=== PATIENT | male | born 1940 | race Caucasian/White ===

== ENCOUNTER 2022-10-18 06:41 | Observation (INO) ==
--- NOTE | 2022-09-16 11:33 | PAT Medication Instructions ---
Medication Instructions Date of Service September 16, 2022 Home Medications Medication Instructions Recorded Parveen Zepeda #1 ea 09/16/22 cholecalciferol (vitamin D3) 25 mcg (1,000 unit) capsule 25 mcg PO QAM Parveen Zepeda amlodipine 2.5 mg tablet 2.5 mg PO QPM levothyroxine 100 mcg tablet 100 mcg PO QAM DO NOT take the morning of surgery cholecalciferol (vitamin D3) 25 mcg (1,000 unit) capsule 25 mcg PO QAM Take morning of surgery With a small sip of water, OTHERWISE NOTHING TO EAT OR DRINK AFTER MIDNIGHT: levothyroxine 100 mcg tablet 100 mcg PO QAM Take evening before surgery amlodipine 2.5 mg tablet 2.5 mg PO QPM Other Notes If you have any questions please call us at [phone] or [phone] or [phone] or [phone]
--- NOTE | 2022-09-19 09:12 | Anesthesiology Consultation ---
Date of Service September 19, 2022 Assessment & Plan (1) Encounter for pre-operative examination: Plan - awaiting echocardiogram, cardiology and PCP clearances. Surgeon's office made aware. Pt made aware. - abnormal cxr: Pt to have PCP clearance per discussion with Dr. Kruger. - Case discussed in detail with Dr. Kruger who advised pt will need echocardiogram and cardiology clearance prior to surgery, nothing further needed from his standpoint regarding brain imaging/records. - Outpatient joint assessment: Patient is currently scheduled for inpatient pathway. If re-evaluated pending system levels during current pandemic/surgeon requests outpatient pathway, patient is NOT acceptable candidate for outpatient joint program from anesthesia standpoint. Chart Review Chart Review: Pending: Refer to Additional Notes / Consult section and Patient seen in Pre Admission Testing Teaching & Discussion Pre-Anesthesia Teaching/Discussion Notes: Instructed NPO after midnight before surgery, except medications with 15 cc of water. Medication instructions provided according to the PAT guidelines. History Surgery Operation Date: 09/23/22 12:30 Proposed Procedures p Left Total Hip Arthroplasty - Paulino Woods MD Height/Weight Height: 5 ft 9 in Weight: 76.6 kg Allergies Allergy/AdvReac Type Severity Reaction Status Date / Time codeine AdvReac Unknown Unverified 09/16/22 10:43 Medications Home Medications Medication Instructions Recorded Confirmed Last Taken cholecalciferol (vitamin D3) 25 25 mcg PO QAM 08/03/22 09/16/22 Unknown mcg (1,000 unit) capsule Wheeled Walker #1 ea 09/16/22 09/16/22 Unknown amlodipine 2.5 mg tablet 2.5 mg PO QPM 09/16/22 09/16/22 Unknown levothyroxine 100 mcg tablet 100 mcg PO QAM 09/16/22 09/16/22 Unknown Past Medical History Medical History (Updated 09/19/22 @ 09:51 by Shahla Mcadams PA-C) Cerebral arterial aneurysm per pt, dx'd > 20 years ago. Followed with [facility]. Annual MRIs x 5 years and no changes. No longer being monitored. 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 Exercise / Class Metabolic Activity II 4-5 Yardwork/Stairs/Walk up hill (denies chest discomfort or shortness of breath with 1 FOS) Past Family History Family History Mother Stroke Brother Prostate cancer Father Heart abnormality Sister Alzheimer disease Other No family history of adverse response to anesthesia Denies family history of Ovarian cancer Myocardial infarction Breast cancer Colorectal cancer Past Surgical History Surgical History History of colonoscopy History of hand surgery Rt History of melanoma excision S/P trigger finger release Past Anesthesia History No Hx of Anesthesia Complications and No Family Hx of Anesthesia Complications History of PONV No Hx of Motion Sickness and History of PONV (with > 12 hour surgery repairing Rt hand, denies additional episodes) Social History Smoking Status: Never smoker Do You Dip or Chew Tobacco: No Hx Alcohol Use: No Hx Substance Use: No substance use type: does not use Review of Systems Patient denies chest pain, shortness of breath, dyspnea on exertion, reflux, fever, chills, cough, wheezing, or palpitations. Physical Exam Vital Signs Vitals BP 125/71 P 63 TEMP 98.0 SP02 94% on RA RESP 18 Physical Full cervical extension range of motion without pain TMD 3.5 finger breadths Mallampati Score 3 Dentition: one permanent bridge and several implants; denies chipped or loose teeth, caps/crowns Lungs: normal respiratory effort. Clear throughout to auscultation, no adventitious breath sounds Cardiac: regular rate and rhythm, 2/6 systolic murmur noted Carotid arteries: negative bruit bilat Lab Results Anesthesia Preop Results Results Anesthesia Widget: WBC 8.41 K/ul (4.8-10.8) 09/19/22 Hgb 13.8 g/dl (14.0-18.0) L 09/19/22 Hct 40.0 % (42.0-52.0) L 09/19/22 Plt 303 K/uL (130-400) 09/19/22 Na 136 mmol/L (136-145) 09/19/22 K 4.5 mmol/L (3.5-5.1) 09/19/22 Cl 105 mmol/L (98-107) 09/19/22 CO2 27 mmol/L (21-32) 09/19/22 BUN 17 mg/dl (6-23) 09/19/22 Creat 0.92 mg/dl (0.6-1.4) 09/19/22 Glucose Level 91 mg/dl (70-99(Fasting)) 09/19/22 PT 11.2 Seconds (9.0-12.0) 09/19/22 PTT 27.5 Seconds (21.0-31.0) 09/19/22 INR 1.1 (0.9-1.1) 09/19/22 Blood Type B Positive 09/19/22 Antibody Screen NEGATIVE 09/19/22 Testing Electrocardiogram Date: 09/19/22 Sinus bradycardia, rate 55 bpm RBBB Left anterior fascicular block Bifascicular block Minimal voltage criteria for LVH, may be normal variant Septal infarct, age undetermined Chest X-Ray Date: 09/19/22 3.7 cm right midlung density with mild reticulonodular interstitial thickening. The findings probably reflect an infectious or inflammatory process. However, a chest CT is recommended to exclude an underlying pulmonary lesion. Other Testing Carotid doppler 01/17/22 < 50% stenosis ICAs bilat COVID-19 Risk Screen Screening Information COVID-19 Screen Date: 09/19/22 Exposure 21 Days Family/Household +COVID Last 21 Days: No Exposure 10 Days Any COVID Exposure Last 10 Days: No Symptoms Last 10 Days Experienced COVID Sx Last 10 Days: No + COVID 0-90 Days COVID + in Last 0-90 Days: No
--- NOTE | 2022-10-14 18:57 | History and Physical Report ---
DATE OF ADMISSION: 10/18/2022 CHIEF COMPLAINT: Left hip pain and leg pain. HISTORY OF PRESENT ILLNESS: The patient is an 82-year-old gentleman well known to my practice for tr eatment for multiple orthopedic problems over the years. He has a several year history of increasing left hip pain and discomfort that has gotten worse over the past year particularly. 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 He sits down and his hip gets really stiff. He limps more as the day goes on. He describ es groin pain, thigh pain, pain radiating down to his knee. He would like to have his hip fixed. Th e patient was previously scheduled, but had to be canceled for cardiac clearance. He has now seen sc s software systems architect as well as his primary care physician and been medically optimized and now desires to proceed with surgery. PAST MEDICAL HISTORY: 1. History mitral valve prolapse. 2. Hypertension. 3. History of TIA without sequelae. 4. Hypothyroidism. 5. Back pain. 6. Prostate cancer. 7. Skin cancer. 8. PMR. PAST SURGICAL HISTORY: Includes: 1. Right hand surgery for a farm accident in the 1960s. 2. Left hand first finger injury from getting caught in some type of kelly. ALLERGIES: CODEINE, REACTION IS UNKNOWN. CURRENT MEDICATIONS: Include: 1. Levothyroxine. 2. Prednisone. 3. Aspirin. 4. Amlodipine. SOCIAL HISTORY: Significant for an 82-year-old male. He lives in [place]. Self-employed part-time fa rmer, fairly active. No history of DVT or PE. PHYSICAL EXAMINATION: GENERAL: Shows a healthy, pleasant 82-year-old male. Looks to be in pretty good shape. HEENT: Benign. NECK: Supple. No lymphadenopathy. LUNGS: Clear to auscultation. HEART: Has a regular rate and rhythm. ABDOMEN: Soft, nontender, nondistended. EXTREMITIES: Grossly neurovascularly intact except as follows: Examination of the left hip revealed the patient ambulates with a slight bit of an antalgic gait. He puts his hand over the left side of his buttock area when he walks. He is about 0.5 cm short on the left side compared to the right. H e has pain and stiffness with any type of hip motion. Internal rotation to neutral. Negative straig ht leg raise. X-RAYS: X-rays of the left hip were reviewed. It shows advanced hip arthritis. He has got complete loss of his superior joint space. He has got flattening of the femoral head. ASSESSMENT AND PLAN: An 82-year-old male, retired part-time pierce with underlying polymyalgia rheu matica with advanced left hip arthritis. It is really affecting his quality of life. He would like to have his hip fixed. He was scheduled previously, but canceled for cardiac clearance. He has seen Dr. Ghotra and cleared for surgery. He has also seen his primary care medical doctor and is medicall y optimized. He may need stress dose steroids as he takes them for polymyalgia rheumatica. The risk s and benefits of total hip replacement were explained and he understands and desires to proceed. In formed consent was obtained. Job ID: [id number]
[~2022-10-18 06:41] MED LIST: ACETAMINOPHEN 500 MG TAB PO SCH; BUPIVACAINE 0.5 % 5 MG/1 ML PF 10ML VIAL ONE; CeleBREX 200 MG CAP PO SCH; FAMOTIDINE 20 MG TAB PO SCH; LR 500ML BOLUS, THEN 15ML/HR IV SCH; LR 60ML/HR IV SCH; METOCLOPRAMIDE HCL 10 MG TABLET PO SCH; TRANEXAMIC ACID 1,000 MG **IV Pre-op IV SCH; ceFAZolin 2000MG 2,000 MG/15 ML SYR IV SCH
--- NOTE | 2022-10-18 06:52 | History & Physical Bridge Note ---
Date of Service October 18, 2022 History & Physical Bridge Note I have examined the patient, reviewed the History & Physical and in the interval since the performance of the History & Physical I have noted the following changes of clinical significance: no changes noted
[2022-10-18] MEDS ORDERED: fentaNYL citrate PF 100 MCG/2 ML VIAL IV PRN (07:40)
[2022-10-18] MEDS ORDERED: ePHEDrine sulfate 50 MG/ML AMP IV PRN (07:40)
[2022-10-18] MEDS ORDERED: ATROPINE SULFATE 0.1 MG/ML 10ML SYR IV PRN (07:40)
[2022-10-18] MEDS ORDERED: ONDANSETRON INJ 2 MG/ML 2 ML VIAL IV PRN ×2 (07:40→11:56)
[2022-10-18] MEDS ORDERED: fentaNYL citrate PF 100 MCG/2 ML VIAL ONE (07:56)
[2022-10-18] MEDS ORDERED: PROPOFOL IV EMULSION 10 MG/ML 20 ML VIAL IV ONE ×2 (08:27→10:14)
[2022-10-18] MEDS ORDERED: LIDOCAINE 2% MPF LOCAL 5 ML VIAL ONE (08:27)
[2022-10-18] MEDS ORDERED: BUPIVACAINE/EPINEPHRINE 0.5% MPF 1:200,000 30 ML VIAL ONE (08:42)
[2022-10-18] MEDS ORDERED: ePHEDrine sulfate 50 MG/ML SYR ONE (09:23)
[2022-10-18] MEDS ORDERED: PHENYLEPHRINE 100MCG/ML 5ML SYR ONE (10:02)
--- NOTE | 2022-10-18 10:25 | Operative Report ---
PG Post Operative Report Pre & Post Diagnosis Operation Date: 10/18/22 08:50 Pre-Op Diagnosis: Left Hip Degenerative Joint Disease Post-Op Diagnosis: Left Hip Degenerative Joint Disease I identified the patient and participated in the time-out.: Yes Procedure Operation Date: 10/18/22 08:50 Actual Procedures p Left Total Hip Arthroplasty, Uncemented(Left) - Paulino Woods MD Surgeon Paulino Woods MD Packing Room Inspector Remy Abdi PA-C Estimated Blood Loss 150 Findings Consistent with Post-Op Diagnosis Operative findings were advanced left hip DJD. He had complete loss of the superior articular cartilage in the collapse of the femoral head. The acetabular cartilage was pretty well-preserved. He had a moderate-sized joint effusion. Pretty significant and large anterior acetabular osteophytes. 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 He failed conservative measures. X-rays show advanced left hip arthritis. He elected proceed with surgical treatment. Description of Procedure Operative implants consist of: 1. Biomet G7 size 56 mm acetabular shell. 2. 6.5 cancellous acetabular screws 135 mm length and 1 of 30 mm length. 3. [place] hole eliminator. 4. Highly cross-linked polyethylene liner with a 56 outer diameter and a 36 mm diameter. 5. DePuy Corail size 12 KLA femoral stem. 6. +5/36 mm ceramic articular ball. The patient was taken the operating, identified, placed on the operating table supine position. All contact areas were appropriately padded. IV antibiotics tried by anesthesia team. A spinal anesthetic and an improvement in the holding area. Shelton catheter was placed in sterile fashion. The patient was then placed in the right lateral decubitus position. Axillary roll was placed. Stulberg hip positioner was used for positioning. The left hip and leg were then prepped and draped in usual sterile fashion. A posterior lateral posterior left hip was then performed through a curvilinear incision centered over the greater trochanter. Sharp dissection carried through subcutaneous tissue down to level the IT band gluteal fascia the IT band gluteal fascia incised longitudinally in line with skin incision. The underlying greater bursa was excised. The piriformis and external rotators along with the posterior hip joint capsule was then released and the posterior aspect of the hip as a single layer. Great care was taken throughout the procedure protect the sciatic nerve at all times. Hip was internally rotated and dislocated. A femoral neck osteotomy cut was made with a Final Cut about 7 mm above the lesser trochanter. Femoral head was removed and sent for pathology. The femur was retracted anteriorly. Attention drawn the acetabulum. The acetabular labrum was excised. The pulmonary fat was excised. Sequential reaming the acetabular was then performed beginning with a size 45 and progressing up to a 55. I then reamed a little bit with a 56 reamer and placed a 56 mm Biomet G7 acetabular shell in about 40 degrees lateral opening and 20 degrees of anteversion. It was fixed with two 6.5 cancellous acetabular screws. A trial liner was placed. A large anterior osteophyte was removed. Attention drawn the femur. The proximal femurs then with a GeoOP cutter followed by canal finder. I then broached beginning size 8 and progressing up to 12. Got excellent fit at a 12. I then trialed the hip. The +5 articular ball provided full stability and equal leg lengths. Soft tissue tension was appropriate. We elect to place these implants. Nupathe all trial implants were removed. An apex hole luminary was placed. Highly cross-linked polyethylene liner was placed. A size 12 KLA femoral stem was impacted in position. +5/36 mm ceramic articular ball was placed. Hip was located and once again found to be stable. Attention drawn to closing. The wounds irrigated copious amounts pulsatile lavage solution. I did inject locally with 60 cc of half percent Marcaine with epinephrine. The posterior capsule and external rotators were repaired through drill holes in the posterior trochanter with #2 Tycron suture. The IT band gluteal fascia then closed with #1 PDS suture in running fashion for subcutaneous tissues then closed with 2 layers the deep layer #1 Vicryl suture and subcutaneous tissues with 2-0 Dexon suture in a buried interrupted fashion. Skin was closed skin jayant. Leg was then cleaned and dried and sterile dressed with Xeroform, 4 fours, ABD pad, foam tape was applied. Patient then transferred to the recovery room in stable condition. Patient tolerated the procedure well and there were no complications. Remy Abdi, my physician medical research assistant, was present for the entire procedure. His assistance was essential and required for appropriate patient positioning, prepping and draping, surgical exposure, performing the technical details of the operation, placement the implants, closure of the wound, and placement of the sterile bandage. I attest to the content of the Intraoperative Record and any orders documented therein. Any exceptions are noted below.
--- NOTE | 2022-10-18 11:20 | XRay Report ---
AP PELVIS, CROSSTABLE LATERAL LEFT HIP History: Left total hip arthroplasty. Degenerative arthritis. Postop. FINDINGS: The patient is status post a left total hip arthroplasty. The hardware is intact. No fractu re or dislocation. Skin jayant and surgical drains are in place. IMPRESSION: Left total hip arthroplasty. No evidence for hardware complication. ACT 112: Negative or not required by law. Electronically signed by: Anthony Schumacher M.D. 10/18/2022 11:19 AM
[2022-10-18] MEDS ORDERED: MAGNESIUM HYDROXIDE SUSP 30 ML UDC PO PRN (11:56)
[2022-10-18] MEDS ORDERED: SODIUM CHLORIDE 0.9% 1000ML 1,000 ML IV SCH (11:56)
[2022-10-18] MEDS ORDERED: NALOXONE HCL 0.4 MG/1 ML VIAL/CARP IV PRN (11:56)
[2022-10-18] MEDS ORDERED: METOCLOPRAMIDE HCL INJ 5 MG/ML 2 ML VIAL IV PRN (11:56)
[2022-10-18] MEDS ORDERED: ALUMINUM/MAGNESIUM SUSP 30 ML UDC PO PRN (11:56)
[2022-10-18] MEDS ORDERED: TAMSULOSIN HCL 0.4 MG CAP PO PRN (11:56)
[2022-10-18] MEDS ORDERED: HYDROmorphone INJ 0.5 MG/0.5 ML SYR IV PRN (11:56)
[2022-10-18] MEDS ORDERED: bisacodyL 10 MG SUPP PR PRN (11:56)
[2022-10-18] MEDS: traMADol HCL 50 MG TABLET PO PRN ×2 (13:03→19:00)
--- NOTE | 2022-10-18 13:35 | Anesthesiology Progress Note ---
Date of Service October 18, 2022 Anesthesia Post Procedure Vital Signs Vital Signs: Temp Pulse Pulse Resp BP Pulse Ox O2 Del Method 10/18/22 13:31 70 16 125/72 93 Room Air 10/18/22 12:45 66 18 141/79 H 95 Room Air 10/18/22 12:30 70 16 137/82 95 Room Air 10/18/22 11:30 97.7 F 66 16 115/67 98 Room Air 10/18/22 12:06 68 16 146/73 H 96 Room Air 10/18/22 11:34 96.8 F L 68 18 115/67 93 Room Air 10/18/22 11:10 70 14 114/58 L 95 Room Air 10/18/22 11:00 97.3 F L 68 17 119/55 L 95 Room Air 10/18/22 10:50 79 20 118/59 L 94 Room Air 10/18/22 10:40 79 18 113/65 95 Room Air 10/18/22 10:30 73 12 104/56 L 98 Room Air 10/18/22 10:22 97.0 F L 70 16 112/56 L 99 Oxymask 10/18/22 07:12 98.1 F 74 20 142/95 H 96 Room Air O2 Flow Rate 10/18/22 13:31 10/18/22 12:45 10/18/22 12:30 10/18/22 11:30 10/18/22 12:06 10/18/22 11:34 10/18/22 11:10 10/18/22 11:00 10/18/22 10:50 10/18/22 10:40 10/18/22 10:30 10/18/22 10:22 5 10/18/22 07:12 Pain Intensity Left Hip: Pain Intensity: 4 Left Foot: Pain Intensity: 2 Transfer of Care Handoff Completed per policy Notes Mental Status: alert / awake / arousable and participated in evaluation Patient Amnestic to Procedure: Yes Nausea / Vomiting: adequately controlled Pain: adequately controlled Airway Patency, RR, SpO2: stable & adequate BP & HR: stable & adequate Hydration State: stable & adequate Neuraxial Anesthesia: was administered and sensory block is resolving Anesthetic Complications: no major complications apparent and Pt Satisfied with anesthetic care
[2022-10-18] MEDS: ACETAMINOPHEN 500 MG TAB PO SCH ×2 (13:56→22:22)
[2022-10-18] MEDS: KETOROLAC TROMETHAMINE 15 MG/ML VIAL IV SCH ×2 (13:57→20:26)
--- NOTE | 2022-10-18 15:07 | Progress Notes ---
SUBJECTIVE: An 82-year-old gentleman postop from a left hip replacement. He is doing well. A littl e bit of pain, but very manageable. No chest pain or shortness of breath. Not feeling dizzy or ligh theaded. OBJECTIVE: VITAL SIGNS: Temperature 36.7. Vital signs are stable. GENERAL: Shows a pleasant, elderly male. He is sitting up in bed and talking to his family. Looks entirely comfortable. LUNGS: Clear to auscultation. HEART: Regular rate and rhythm. ABDOMEN: Soft, nontender, nondistended. EXTREMITIES: Grossly neurovascularly intact except as follows: Examination of the left hip and leg reveals the leg to be well aligned. Leg lengths were equal. Joselito ssing is clean, dry and intact. Thigh is soft and supple. He can dorsiflex and plantarflex his foot appropriately. He is neurologically intact. X-RAY: Low AP pelvis and lateral of the left hip from the recovery room are reviewed. It shows a le ft uncemented hip replacement. Components looked to be in good position. No signs of problems. 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 He is doing well. Pain is controlled. Hip is located. He is neurologically intact. PLAN: 1. DVT prophylaxis includes thigh-high TEDs, SCDs, and aspirin twice a day. 2. PT, OT, weightbear as tolerated. Left total hip protocol. 3. Pain control, doing okay with current pain regimen. 4. Disposition: Plan to discharge to home with some home health once adequately recovered and medic ally stable. Job ID: [id number]
[2022-10-18] MEDS ORDERED: TRANEXAMIC ACID / 0.7% NACL 1,000 MG/100 ML BAG IV SCH (16:30)
[2022-10-18] MEDS: ceFAZolin 1000MG 1,000 MG/7.5 ML SYR IV SCH ×2 (17:02→23:47)
[2022-10-18] MEDS: ASCORBIC ACID 500 MG TAB PO SCH (17:03)
[2022-10-18] MEDS: DOCUSATE SODIUM 100 MG CAP PO SCH (20:26)
[2022-10-18] MEDS: ASPIRIN 81 MG ECTAB PO SCH (20:27)
[2022-10-18] MEDS: DOCUSATE SODIUM/SENNA 50/8.6MG TAB PO SCH (20:27)
[2022-10-18] MEDS ORDERED: SENNA 8.6 MG TAB PO SCH (21:00)
[2022-10-18] MEDS ORDERED: amLODIPine BESYLATE 5 MG TAB PO SCH (21:00)
[2022-10-19] MEDS: KETOROLAC TROMETHAMINE 15 MG/ML VIAL IV SCH ×2 (01:55→08:21)
[2022-10-19] MEDS: ACETAMINOPHEN 500 MG TAB PO SCH (05:36)
[2022-10-19] MEDS ORDERED: LEVOTHYROXINE SODIUM 100 MCG TABLET PO SCH (06:30)
[2022-10-19] MEDS ORDERED: dexAMETHasone 10 MG in SYRINGE 0 ML IV SCH (08:00)
[2022-10-19] MEDS: DOCUSATE SODIUM/SENNA 50/8.6MG TAB PO SCH (08:22)
[2022-10-19] MEDS: DOCUSATE SODIUM 100 MG CAP PO SCH (08:22)
[2022-10-19] MEDS: ASPIRIN 81 MG ECTAB PO SCH (08:22)
[2022-10-19] MEDS: ASCORBIC ACID 500 MG TAB PO SCH (08:22)
[2022-10-19 08:43] LABS: Basophils # (auto) 0.06 K/uL (0-0.2); Basophils % (auto) 0.8 %; Eosinophils # (auto) 0.16 K/uL (0-0.50); Eosinophils % (auto) 2.2 %; Hematocrit (blood only) 39.7 % (42.0-52.0); Hemoglobin 13.3 g/dl (14.0-18.0); Immature Granulocytes # (auto) 0.03 K/uL (0.01-0.20); Immature Granulocytes % (auto) 0.4 %; Lymphocytes # (auto) 1.34 K/uL (1.2-3.4); Lymphocytes % (auto) 18.1 %; Mean Corpuscular Hemoglobin 30.2 pg (25.0-34.0); Mean Corpuscular Hgb Conc 33.5 g/dL (32.0-36.0); Mean Platelet Volume 8.9 fL (9.4-12.4); Monocytes # (auto) 0.75 K/uL (0.11-0.59); Monocytes % (auto) 10.1 %; Neutrophils # (auto) 5.05 K/uL (1.40-6.50); Neutrophils % (auto) 68.4 %; Platelet Count 262 K/uL (130-400); RDW Coefficient of Variation 12.3 % (11.5-14.5); RDW Standard Deviation 40.9 fL (36.4-46.3); Red Blood Count 4.41 M/uL (4.70-6.10); White Blood Count 7.39 K/ul (4.8-10.8)
[2022-10-19] MEDS ORDERED: MULTIVITAMIN TAB PO SCH (09:00)
--- NOTE | 2022-10-19 09:20 | Progress Notes ---
DATE OF SERVICE: 10/19/2022. SUBJECTIVE: An 82-year-old gentleman, postoperative day 1 from a left hip replacement. He has done pretty well. Did get a little bit dizzy and lightheaded when he got up this morning. Laid him back down, he is doing much better. No real complaints. Hip is sore, but very manageable. No chest pain or shortness of breath. OBJECTIVE: VITAL SIGNS: Temperature 36.6. Vital signs are stable. GENERAL: Shows a pleasant, elderly male. He is lying in bed, looks completely comfortable this morn ing. EXTREMITIES: Examination of the left hip and leg reveals the leg lengths to be equal. Dressing is c lean, dry and intact. Thigh is soft and supple. He can dorsiflex and plantarflex his foot appropria tely. LABORATORY DATA: Hemoglobin 13.3. Hematocrit 39.7. Electrolytes are pending. ASSESSMENT: An 82-year-old gentleman, postoperative day 1 from a left total hip replacement, doing r easonably well. He got a little bit orthostatic when he got up this morning. He may be a little bit dehydrated. His pain is controlled. Hip is located. He is neurologically intact. PLAN: 1. DVT prophylaxis includes thigh-high TEDs, SCDs, and aspirin twice a day. 2. PT/OT, weightbear as tolerated. Left total hip protocol. 3. Pain control, doing okay with current pain regimen. 4. Dizziness. We will see how therapy goes today. Encourage p.o. intake. 5. Disposition: Plan is to discharge to home with some home health once adequately recovered and me dically stable. Job ID: [id number]
[2022-10-19 09:32] LABS: BUN Creatinine Ratio 13.6 (10-20); Calcium 8.6 mg/dl (8.6-10.3); Creatinine Clr Calc Pharmacy 72.7 ml/min; Est GFR (African American) 97.3 ml/min; Est GFR (Non-African American) 83.9 ml/min; Potassium 3.8 mmol/L (3.5-5.1)
--- NOTE | 2022-10-21 18:35 | Discharge Summary ---
Date of Service October 21, 2022 Discharge Data Procedures Performed Operation Date: 10/18/22 08:50 Actual Procedures p Left Total Hip Arthroplasty, Uncemented(Left) - Paulino Woods MD Hospital Course (1) S/P total left hip arthroplasty: This is a 82 year old patient admitted on 10/18/22 and underwent total hip arthroplasty. He tolerated the procedure well and there were no complications. Transferred to the PACU post op and later to the orthopedic floor for further care. He was given ancef for antibiotic prophylaxis. He was also given MARCIN stockings, SCDs, and aspirin for DVT prophylaxis. Hemoglobin, hematocrit, and vital signs were monitored during his hospital stay and remained stable. Did not require any blood transfusions. There were no complications during his hospital stay. By post op day #1 the patient was tolerating a regular diet, pain was reasonably controlled with oral pain medicine, and he was participating in physical therapy. On post op day #1 the patient was discharged home and set up with home health care. He was given printed discharge instructions including prescriptions for extra strength tylenol, aspirin, ketorolac, zofran, senokot, and tramadol. Contineu hip precautions. Continue physical therapy, weight bearing as tolerated. Continue MARCIN stockings. Follow up approximately 2 weeks post op or sooner if there are problems or concerns. Coding Level of Care Code None Diagnoses S/P total left hip arthroplasty Z96.642
== END 2022-10-19 13:12 | disposition home health service (06) ==
LOC: ASU 06:41 → 3W 06:41